=== PATIENT | male | born 1955 | race African-American/Black ===

== ENCOUNTER 2016-07-09 16:56 | Emergency (ER) | payer MEDICAID ==
[~2016-07-09] VITALS: Ht 180.3 cm; Wt 95.3 kg
[2016-07-09 17:43] LABS: Basophils # (auto) 0 uL; Basophils % (auto) 0.3 % (0.0-2.0); Eosinophils # (auto) 0.3 uL; Eosinophils % (auto) 2.6 % (0.0-7.0); Hematocrit 50.1 % (41.0-53.0); Hemoglobin 16.4 g/dL (13.5-17.5); Lymphocytes # (auto) 2.3 uL; Mean Corpuscular Hemoglobin 29.9 pg (28.0-32.0); Mean Corpuscular Hgb Conc. 32.8 g/dL (32.0-36.0); Mean Corpuscular Volume 91.3 fL (80.0-100.0); Mean Platelet Volume 8.3 fL (7.4-10.4); Monocytes # (auto) 1.2 uL; Monocytes % (auto) 12.2 % (0.0-12.0); Neutrophils # (auto) 6.3 uL; Neutrophils % (auto) 61.9 % (37.0-80.0); Platelet Count (auto) 322 10^3/uL (140-450); Red Cell Distribution Width 12.7 % (11.6-16.0); White Blood Cell 10.2 10^3/uL (4.4-10.8)
[2016-07-09 18:03] LABS: Albumin 3.7 g/dL (3.4-5.0); BUN/Creatinine Ratio 14.9; Calcium 8.3 mg/dL (8.5-10.1); Potassium 3.7 mmol/L (3.5-5.1)
[2016-07-09 18:06] LABS: Bilirubin, Total 1.1 mg/dL (0.2-1.0); Total Protein 7.9 g/dL (6.4-8.2)
[2016-07-10] MEDS ORDERED: KETOROLAC TROMETH 60MG/2ML VIAL IM ONE
[2016-07-10] MEDS ORDERED: HYDROcodone-ACET 5/325MG TAB PO ONE
[2016-07-10 00:16] VITALS: BP 117/75
== END 2016-07-10 01:38 | disposition home or self-care (01) ==
LOC: ER 16:59
DX: S13.4XXA Sprain of ligaments of cervical spine, initial encounter (principal); I10 Essential (primary) hypertension; F17.210 Nicotine dependence, cigarettes, uncomplicated; X58.XXXA Exposure to other specified factors, initial encounter; Y93.89 Activity, other specified; Y99.9 Unspecified external cause status; Y92.89 Other specified places as the place of occurrence of the external cause
CPT/HCPCS: 36415; 72040; 80053; 84484; 85025; 93005; 96372; 99285; J1885